=== PATIENT | female | born 1990 | race Hispanic/Latino ===

== ENCOUNTER 2024-10-27 10:38 | Emergency (ER) | payer OTHER, SELFPAY | END 2024-10-27 12:05 | disposition home or self-care (01) | LOC: BURERS 10:38 | DX: S93.401A Sprain of unspecified ligament of right ankle, initial encounter (principal); W17.2XXA Fall into hole, initial encounter; Y93.01 Activity, walking, marching and hiking | CPT/HCPCS: 99283 ==